=== PATIENT | male | born 1990 | race Caucasian/White ===

== ENCOUNTER 2018-08-25 14:03 | Emergency (ER) | payer OTHER ==
[2018-08-25 14:11] VITALS: RESP 20
[2018-08-25] MEDS ORDERED: DIPH,PERTUS(ACELL)TETVAC-LF 0.5 ML VIAL IM ONE (15:01)
--- NOTE | 2018-08-25 15:03 | ED ---
General Adult HPI - General Chief complaint: Wound/Laceration Stated complaint: Lip Laceration Time Seen by Provider: 08/25/18 14:44 Source: patient, RN notes reviewed Mode of arrival: ambulatory Limitations: no limitations - History of Present Illness Initial comments: 28-year-old male presenting to the emergency room today with a chief complaint of laceration to the face. Patient does admit that earlier this morning approximately 9:30 he was kicked in the face by a horse. This was cleared with the horse kicked back and hit in the face. He states he did not lose conscious. Does not have a headache. States he did put a bandage over top. States he was later advised by his family that he should come to the hospital for stitches. Patient denies any recent fever, chills, shortness of breath, chest pain, back pain, abdominal pain, nausea or vomiting, numbness or tingling , headaches or visual changes, or any other complaints. - Related Data Previous Rx's Medication Instructions Recorded Ibuprofen [Motrin] 600 mg PO Q6HR PRN #20 day 08/02/16 Tobramycin 0.3% Ophth Oint [Tobrex 1 applic LEFT EYE TID 7 Days gm 08/02/16 0.3% Ophth Oint] Cephalexin [Keflex] 500 mg PO BID #14 cap 08/25/18 Allergies Allergy/AdvReac Type Severity Reaction Status Date / Time acetaminophen Allergy Swelling Verified 08/25/18 14:11 [From Tylenol-Codeine #3] codeine phosphate Allergy Swelling Verified 08/25/18 14:11 [From Tylenol-Codeine #3] Review of Systems ROS Statement: Those systems with pertinent positive or pertinent negative responses have been documented in the HPI. ROS Other: All systems not noted in ROS Statement are negative. Past Medical History Past Medical History: No Reported History Additional Past Medical History / Comment(s): ADHD History of Any Multi-Drug Resistant Organisms: None Reported Past Surgical History: No Surgical Hx Reported, Tonsillectomy Past Psychological History: ADD/ADHD Smoking Status: Current every day smoker Past Alcohol Use History: Occasional Past Drug Use History: None Reported General Exam - General Exam Comments Initial Comments: General: The patient is awake and alert, in no distress, and does not appear acutely ill. Eye: Pupils are equal, round and reactive to light. Extra-ocular movements are intact. No nystagmus. There is normal conjunctiva bilaterally. No signs of icterus. Ears, nose, mouth and throat: There are moist mucous membranes and no oral lesions. Neck: The neck is supple, there is no tenderness or JVD. Musculoskeletal: Normal ROM, no tenderness. Sensation intact. Strength 5/5. Pulses equal bilaterally 2+. Neurological: A&O x 3. CN II-XII intact, There are no obvious motor or sensory deficits. Coordination appears grossly intact. Speech is normal. Skin: Does have laceration to the lower chin. No active bleeding. Psychiatric: Cooperative, appropriate mood & affect, normal judgment. Limitations: no limitations Course Vital Signs 08/25/18 14:09 Temperature 97.8 F Pulse Rate 80 Respiratory 20 Rate Blood Pressure 141/94 O2 Sat by Pulse 99 Oximetry Procedures - Procedures Initial comment: 1.5 cm laceration just below the lip on the jaw midline. Does not cross vermilion border. The skin was anesthetized with 1% lidocaine. The laceration was then cleansed with and irrigated with normal saline. The wound was inspected , and there was no evidence of injury to deep structures. No foreign body was noted in the wound. A total of 3 skin sutures were placed utilizing 5-0 nylon. Medical Decision Making - Medical Decision Making Tetanus is updated. Patient will be started on antibiotics to cover for any infection. Patient advised return in 5 days to have sutures removed. Disposition Clinical Impression: Laceration Disposition: HOME SELF-CARE Condition: Good Instructions: Laceration (ED) Additional Instructions: Please return to the emergency room in 5 days to have sutures removed. Please watch for any signs of infection which may include increased pain, swelling, redness, fever or chills. Please return to emergency room for any signs of infection do occur. Please use clean soap and water over the area to prevent scabbing over your stitches. Please leave wound covered for the first 24-48 hours and then leave wound open to air. Please return to the emergency room for any other concerns. Prescriptions: Cephalexin [Keflex] 500 mg PO BID #14 cap Is patient prescribed a controlled substance at d/c from ED?: No Referrals: Keith Tran MD [Primary Care Provider] - 1-2 days Time of Disposition: 15:44
[2018-08-25] MEDS ORDERED: LIDOCAINE 1% INJ 10MG/ML (20 ML MDV) SQ STA (15:12)
[2018-08-25 15:52] VITALS: BP 135/84; PULSE 78; TEMP 98.2
== END 2018-08-25 15:51 | disposition home or self-care (01) ==
LOC: EC 14:03
DX: S01.81XA Laceration without foreign body of other part of head, initial encounter (principal); F17.200 Nicotine dependence, unspecified, uncomplicated; Z88.5 Allergy status to narcotic agent; Z88.6 Allergy status to analgesic agent; Z23 Encounter for immunization; W55.12XA Struck by horse, initial encounter; Y92.009 Unspecified place in unspecified non-institutional (private) residence as the place of occurrence of the external cause
CPT/HCPCS: 90715; 99282; 12011; 90471; J2001

== ENCOUNTER 2018-09-21 00:22 | Inpatient (IN) | payer OTHER ==
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
[2018-09-21 01:57] LABS: Amphetamine Screen,Urine Not Detected (NotDetected); Barbiturate Screen,Urine Not Detected (NotDetected); Benzodiazepines Screen,Urine Not Detected (NotDetected); Cocaine Screen,Urine Not Detected (NotDetected); Methadone Screen, Urine Not Detected (NotDetected); Opiate Screen,Urine Not Detected (NotDetected); Oxycodone Screen, Urine Not Detected (NotDetected); Phencyclidine Screen,Urine Not Detected (NotDetected); Tricyclic Antidepressant,Urine Not Detected (NotDetected); Urn Cannabinoid Scrn Not Detected (NotDetected)
[2018-09-21 01:58] LABS: Basophils % (A) 1 %; Eosinophils # (A) 0.2 k/uL (0-0.7); Eosinophils % (A) 3 %; HGB 15.6 gm/dL (13.0-17.5); Lymphocytes % (A) 30 %; MCH 29.4 pg (25.0-35.0); MCHC 32.5 g/dL (31.0-37.0); MCV 90.4 fL (80.0-100.0); Mean Platelet Volume 8.6; Monocytes # (A) 0.4 k/uL (0-1.0); Monocytes % (A) 5 %; Neutrophils % (A) 59 %; Platelet Count 102 k/uL (150-450); RBC 5.31 m/uL (4.30-5.90); RDW 14.1 % (11.5-15.5); WBC 6.8 k/uL (3.8-10.6)
[2018-09-21 02:01] LABS: ALT 20 U/L (21-72); AST 26 U/L (17-59); Alkaline Phosphatase 64 U/L (38-126); Anion Gap 13 mmol/L; Blood Urea Nitrogen 12 mg/dL (9-20); Calcium 9.3 mg/dL (8.4-10.2); Carbon Dioxide 21 mmol/L (22-30); Chloride 109 mmol/L (98-107); Glucose 108 mg/dL (74-99); Potassium 4.3 mmol/L (3.5-5.1); Sodium 143 mmol/L (137-145); Total Bilirubin 0.4 mg/dL (0.2-1.3); Total Protein 9.1 g/dL (6.3-8.2)
[2018-09-21] MEDS ORDERED: MAG HYDROX/AL HYDROX/SIMETH 30 ML CUP PO PRN (16:22)
[2018-09-21] MEDS ORDERED: ACETAMINOPHEN TAB 325 MG TAB PO PRN (16:22)
[2018-09-21] MEDS ORDERED: MAGNESIUM HYDROXIDE 2,400 MG/10 ML CUP PO PRN (16:22)
[2018-09-21] MEDS ORDERED: ZIPRASIDONE 20 MG VIAL IM PRN (16:22)
[2018-09-21] MEDS ORDERED: LORazepam 1 MG TAB PO PRN (16:22)
[2018-09-21] MEDS ORDERED: LORazepam 2 MG/ML INJ IM PRN (16:27)
[2018-09-21] MEDS: NICOTINE 21MG/24HR PATCH TRANSDERM SCH (17:20)
[2018-09-21] MEDS: chlordiazePOXIDE 25 MG CAP PO SCH (17:23)
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
[2018-09-22] MEDS: chlordiazePOXIDE 25 MG CAP PO SCH ×2 (00:03→06:00)
[2018-09-22] MEDS: NICOTINE 21MG/24HR PATCH TRANSDERM SCH (07:57)
--- NOTE | 2018-09-22 10:07 | P.HP ---
Psychiatric H&P - . H&P Date: 09/22/18 History & Physical: Allergies Allergy/AdvReac Type Severity Reaction Status Date / Time codeine phosphate AdvReac Nausea Verified 09/21/18 07:28 [From Tylenol-Codeine #3] Vital Signs Temp 98.8 F 09/22/18 00:07 Pulse 54 L 09/22/18 06:02 Resp 14 09/22/18 00:07 BP 119/63 09/22/18 06:02 Pulse Ox 98 09/21/18 16:09 Intake & Output 09/21/18 09/22/18 09/22/18 18:59 06:59 18:59 Weight 84.232 kg Laboratory Last Values WBC 6.8 k/uL (3.8-10.6) 09/21/18 01:30 RBC 5.31 m/uL (4.30-5.90) 09/21/18 01:30 Hgb 15.6 gm/dL (13.0-17.5) 09/21/18 01:30 Hct 48.0 % (39.0-53.0) 09/21/18 01:30 MCV 90.4 fL (80.0-100.0) 09/21/18 01:30 MCH 29.4 pg (25.0-35.0) 09/21/18 01:30 MCHC 32.5 g/dL (31.0-37.0) 09/21/18 01:30 RDW 14.1 % (11.5-15.5) 09/21/18 01:30 Plt Count 102 k/uL (150-450) L 09/21/18 01:30 Neutrophils % 59 % 09/21/18 01:30 Lymphocytes % 30 % 09/21/18 01:30 Monocytes % 5 % 09/21/18 01:30 Eosinophils % 3 % 09/21/18 01:30 Basophils % 1 % 09/21/18 01:30 Neutrophils # 4.0 k/uL (1.3-7.7) 09/21/18 01:30 Lymphocytes # 2.0 k/uL (1.0-4.8) 09/21/18 01:30 Monocytes # 0.4 k/uL (0-1.0) 09/21/18 01:30 Eosinophils # 0.2 k/uL (0-0.7) 09/21/18 01:30 Basophils # 0.0 k/uL (0-0.2) 09/21/18 01:30 Sodium 143 mmol/L (137-145) 09/21/18 01:30 Potassium 4.3 mmol/L (3.5-5.1) 09/21/18 01:30 Chloride 109 mmol/L (98-107) H 09/21/18 01:30 Carbon Dioxide 21 mmol/L (22-30) L 09/21/18 01:30 Anion Gap 13 mmol/L 09/21/18 01:30 BUN 12 mg/dL (9-20) 09/21/18 01:30 Creatinine 0.83 mg/dL (0.66-1.25) 09/21/18 01:30 Est GFR (CKD-EPI)AfAm >90 (>60 ml/min/1.73 sqM) 09/21/18 01:30 Est GFR (CKD-EPI)NonAf >90 (>60 ml/min/1.73 sqM) 09/21/18 01:30 Glucose 108 mg/dL (74-99) H 09/21/18 01:30 Calcium 9.3 mg/dL (8.4-10.2) 09/21/18 01:30 Total Bilirubin 0.4 mg/dL (0.2-1.3) 09/21/18 01:30 AST 26 U/L (17-59) 09/21/18 01:30 ALT 20 U/L (21-72) L 09/21/18 01:30 Alkaline Phosphatase 64 U/L (38-126) 09/21/18 01:30 Total Protein 9.1 g/dL (6.3-8.2) H 09/21/18 01:30 Albumin 5.0 g/dL (3.5-5.0) 09/21/18 01:30 TSH 2.570 mIU/L (0.465-4.680) 09/21/18 01:30 Urine Opiates Screen Not Detected (NotDetected) 09/21/18 01:21 Ur Oxycodone Screen Not Detected (NotDetected) 09/21/18 01:21 Urine Methadone Screen Not Detected (NotDetected) 09/21/18 01:21 Ur Propoxyphene Screen Not Detected (NotDetected) 09/21/18 01:21 Ur Barbiturates Screen Not Detected (NotDetected) 09/21/18 01:21 U Tricyclic Antidepress Not Detected (NotDetected) 09/21/18 01:21 Ur Phencyclidine Scrn Not Detected (NotDetected) 09/21/18 01:21 Ur Amphetamines Screen Not Detected (NotDetected) 09/21/18 01:21 U Methamphetamines Scrn Not Detected (NotDetected) 09/21/18 01:21 U Benzodiazepines Scrn Not Detected (NotDetected) 09/21/18 01:21 Urine Cocaine Screen Not Detected (NotDetected) 09/21/18 01:21 U Marijuana (THC) Screen Not Detected (NotDetected) 09/21/18 01:21 09/22/18 09:59 IDENTIFYING DATA: 28-year-old single male patient HPI: Patient admitted to the inpatient psychiatric unit [facility] on a voluntary basis with recent depression. Patient states that he has been depressed lately. He states that off and on he sees shadow figures. He says he doesn't need to be depressed to sees shadow figures. He denies that he had thoughts of suicide but says that he just been really depressed and it's affecting his work. PAST PSYCHIATRIC HISTORY: Patient states he was diagnosed with depression at 17 after his father . He also has a history of diagnosis of schizophrenia. Says he has a history of seeing shadow figures, no auditory hallucinations. He says at times lead some thoughts that people are out to get him. He denies any recent psychotropic medications. He's been on Zoloft in the past with positive benefit. No history of antipsychotic treatment. He has a history of ADHD medication treatment. PMH: Hypertension ALLERGIES: Codeine MEDICATIONS: Tylenol when necessary, Maalox when necessary, Librium, Ativan when necessary, milk of magnesia when necessary, Habitrol patch, Geodon when necessary CHEMICAL DEPENDENCY HISTORY: Patient states a couple of beers here and there. FAMILY PSYCHIATRIC HISTORY: None known at this time. FAMILY CHEMICAL DEPENDENCY HISTORY: Unknown at this time. SOCIAL HISTORY: Patient works full-time for [employer]. He does other things such as helping a neighbor with horses and helping a retired that. 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 He currently lives with his mom. He's never been and does not have any children. He is not in a current relationship. MENTAL STATUS EXAM: He is alert and cooperative with the interview. His speech is fluent, not rapid or pressured. Thought processes are organized. His mood is described as "fine." He denies any thoughts of harm to self or others. He denies any auditory or visual hallucinations. I do not note any significant disorientation or memory disturbance. His insight is adequate, judgment shows evidence of recent impairment. STRENGTHS/WEAKNESSES: Strengths-seeking treatment; weaknesses-coping skills INTELLECTUAL FUNCTIONING: Average IMPRESSIONS: Schizoaffective disorder depressive type PLAN: We'll admit patient to the inpatient psychiatric unit [facility] on a voluntary basis. He will placed on SP 15 minute precautions. He will be seen in medical consultation and Baseline laboratory workup will be done the patient will initiate Zoloft 50 mg daily to help with mood and will initiate Abilify 2 mg daily to help with psychosis symptoms and can also help augment for mood. At this time we'll discontinue Librium and continue with Ativan when necessary. I do not see any evidence of alcohol withdrawal. We'll look into any support systems. Estimated length of stay is 3-5 days. Prognosis is guarded. 09/22/18 10:06
[2018-09-22] MEDS: SERTRALINE 50 MG TAB PO SCH (10:13)
[2018-09-22] MEDS: ARIPiprazole 2 MG TAB PO SCH (10:13)
[2018-09-23] MEDS: SERTRALINE 50 MG TAB PO SCH (08:29)
[2018-09-23] MEDS: NICOTINE 21MG/24HR PATCH TRANSDERM SCH (08:29)
[2018-09-23] MEDS: ARIPiprazole 2 MG TAB PO SCH (08:29)
[2018-09-23 09:23] VITALS: BMI 25.4
--- NOTE | 2018-09-23 15:20 | P.PN ---
Progress Note - Text Progress Note Date: 09/23/18 Interval history: Patient is seen in cross coverage again today. He reports that his mood is doing better today. He does not voice any adverse psychotropic medication side effects. Reports that he has not been having any hallucinations during his admission here. Mental status exam: He is alert and cooperative with the interview. His speech is fluent, not rapid or pressured. Thought processes are organized. His mood is improved. He denies any thoughts of harm to self or others. He denies any hallucinations. No evidence of delusional thinking or agitation. Plan: Patient be maintained on Abilify and Zoloft as current. Continue to monitor for any medication side effects and monitor his ongoing response to treatment.
[2018-09-24] MEDS: SERTRALINE 50 MG TAB PO SCH (08:23)
[2018-09-24] MEDS: ARIPiprazole 2 MG TAB PO SCH (08:23)
[2018-09-24] MEDS: NICOTINE 21MG/24HR PATCH TRANSDERM SCH (08:23)
--- NOTE | 2018-09-24 10:53 | P.PN ---
Progress Note - Text Interval history: The patient is found in the hallway he follows me to an interview room. The patient was admitted over the weekend for suicidal ideation. The psychiatric evaluation and subsequent progress note were reviewed. The patient was started on Zoloft and Abilify. The patient has no questions or concerns regarding those medications. He states that his mood is much improved. He had numerous visits from family and friends over the weekend and that was very supportive. He states he was feeling overwhelmed by stressors including occupational prior to admission. He has been participating in groups. Staff described him as friendly and cooperative. Mental status exam: The patient is alert he is dressed in his own clothing hygiene grooming are adequate. Eye contact is good speech is fluent spontaneous nonpressured. He reports his mood is much improved. He denies having any suicidal ideation intent or plan he is reporting no homicidal ideation intent or plan. Affect is bright euthymic in appearance. He reports no auditory or visual hallucinations or any specific delusions. There is no observed evidence of psychosis. He demonstrates no tangential thinking loose associations or flight of ideas. He does not appear hypomanic or manic. He is oriented to person place and date. He demonstrates no involuntary repetitive movements. He demonstrates no verbal or physical aggressiveness. Plan: The patient will continue on his current psychotropic medication. We will monitor him for safety. He is encouraged to continue participating in the milieu. Social work will be asked to facilitate a family meeting. We will consider discharging him in the next 1-2 days if clinically appropriate.
[2018-09-25 06:25] VITALS: BP 104/57; PULSE 58; RESP 16; TEMP 97.4
[2018-09-25] MEDS: ARIPiprazole 2 MG TAB PO SCH (08:09)
[2018-09-25] MEDS: NICOTINE 21MG/24HR PATCH TRANSDERM SCH (08:09)
[2018-09-25] MEDS: SERTRALINE 50 MG TAB PO SCH (08:09)
--- NOTE | 2018-09-25 10:10 | P.DS ---
Providers Date of admission: 09/21/18 15:51 Expected date of discharge: 09/25/18 Attending physician: Nick Prakash Consults: 09/21/18 16:22 Consult Physician Routine Consulting Provider: Geremias Limon Consult Reason/Comments: [facility] Do you want consulting provider notified?: Already Contacted Primary care physician: Keith Tran - Discharge Diagnosis(es) (1) Depression Current Visit: Yes Status: Acute Priority: High Hospital Course: Brief summary of admission note: This patient is a 28-year-old single male who was admitted to the mental health unit through the emergency room. The patient was admitted with a complaint of recent depression. He reported thoughts of suicide. He reported feeling overwhelmed by stressors at work. He described seeing shadowy figures. For full details please refer to Dr. Uribe psychiatric evaluation dated 09/22/2018. Summary of hospital course: The patient was admitted to the mental health unit voluntarily. He was initially evaluated by Dr. Meraz and started on Zoloft and Abilify. I assumed care of the patient yesterday. The patient reported a significant improvement of symptoms yesterday. He describes no auditory or visual hallucinations. He feels his mood is better and he has begun to think of some strategies to reduce his work related stress. He reports having numerous visits from family members over the weekend which she found supportive. He was seen by internal medicine for routine history and physical exam. He has demonstrated no agitated behavior. He is tolerating his psychotropic medications without any complaint. He feels that he has stabilized and is appropriate for discharge. Social work will arrange a support meeting. Mental status exam: The patient is alert he is dressed in his own clothing hygiene grooming are adequate. He has good eye contact speech is fluent spontaneous nonpressured. He is observed interacting with peers appropriately. He reports his mood is good affect is euthymic. He reports no suicidal or homicidal ideation intent or plan. He reports no auditory or visual hallucinations he reports no specific delusions. He demonstrates no observed evidence of psychosis. Thought process is linear he demonstrates no tangential thinking loose associations or flight of ideas. He does not appear hypomanic or manic. Insight and judgment grossly intact. He is easily directed during the interaction. He is oriented to person place and date. He demonstrates no verbal or physical aggressiveness he demonstrates no involuntary repetitive movements. He demonstrates future oriented thinking throughout our session. Impressions 1. Depression unspecified, rule out major depressive disorder recurrent severe with psychosis, rule out primary psychotic etiology with mood symptoms Plan: The patient will be discharged from the mental health unit he will return residing with his mother. He will participate in a support meeting. Social work will arrange his outpatient mental health follow-up. He will continue on Zoloft 50 mg daily Abilify 2 mg daily. He is instructed to abstain from any use of alcohol or any illicit drug. There is no imminent safety risk he is appropriate for transition to outpatient care. He is instructed to return to the hospital with any acute safety concerns. Patient Condition at Discharge: Stable Plan - Discharge Summary Discharge Rx Participant: No New Discharge Prescriptions: New ARIPiprazole [Abilify] 2 mg PO DAILY #30 tab Nicotine 21Mg/24Hr Patch [Habitrol] 1 patch TRANSDERM DAILY #10 patch Sertraline [Zoloft] 50 mg PO DAILY #30 tab Continue Ibuprofen [Motrin Ib] 800 mg PO Q6H PRN PRN Reason: Pain Discharge Medication List Ibuprofen [Motrin Ib] 800 mg PO Q6H PRN 09/21/18 [History] ARIPiprazole [Abilify] 2 mg PO DAILY #30 tab 09/25/18 [Rx] Nicotine 21Mg/24Hr Patch [Habitrol] 1 patch TRANSDERM DAILY #10 patch 09/25/18 [ Rx] Sertraline [Zoloft] 50 mg PO DAILY #30 tab 09/25/18 [Rx] Follow up Appointment(s)/Referral(s): Keith Tran MD [Primary Care Provider] - 1-2 days
== END 2018-09-25 14:31 | disposition home or self-care (01) | DRG 885 ==
LOC: EC 00:22 → 3MHU 15:51
PROVIDERS: ADMIT Psychiatry & Neurology Psychiatry; ATTEND Psychiatry & Neurology Psychiatry
DX: F33.3 Major depressive disorder, recurrent, severe with psychotic symptoms (principal); R45.851 Suicidal ideations; D69.6 Thrombocytopenia, unspecified; F17.210 Nicotine dependence, cigarettes, uncomplicated; F51.04 Psychophysiologic insomnia; F90.9 Attention-deficit hyperactivity disorder, unspecified type; S60.812A Abrasion of left wrist, initial encounter; Z79.899 Other long term (current) drug therapy; Z88.5 Allergy status to narcotic agent; X78.1XXA Intentional self-harm by knife, initial encounter; Y92.9 Unspecified place or not applicable
CPT/HCPCS: 36415; 80053; 80306; 82075; 84443; 85025; 99285